=== PATIENT | male | born 1980 | race Caucasian/White ===

== ENCOUNTER 2019-01-14 12:43 | Outpatient (CLI) | payer OTHER ==
[~2019-01-14 12:43] MED LIST: EPINEPHrine 1 MG/ML AMP ONE; Gadobenate Dimeglumine 529 MG/1 ML (20ML VIAL) ONE; Iopamidol 300 61% 50 ML VIAL FS ONE; Lidocaine 1% PF 10 ML AMP ONE
--- NOTE | 2019-01-14 14:55 | RAD ---
EXAM: XR Elbow Lt Arthrogram PROVIDED CLINICAL HISTORY: Left elbow pain. Unknown injury COMPARISON: None Fluoroscopy: Total fluoroscopy time 0.9 minutes with total dose of 25.5 uGy meter squared. TECHNIQUE: The procedure including risks and complications were explained to the patient, and informed consent w as obtained. Patient was placed on the fluoroscopy table in the prone position with left elbow placed in 90 degree position. An area was marked on the posterior aspect of the elbow at the level of the olecranon fossa. The area was meticulously prepped and draped in usual sterile fashion. Skin and subcutaneous tissues were infiltrated with buffered 1% lidocaine for local anesthesia. A 25-gauge needle was advanced into the olecranon fossa. Small amount of contrast was injected with free flow of contrast from the tip of the needle. As result approximately 4 to 5 mL of a mixture originally con taining 2 mL of gadolinium contrast, 8 mL Isovue-300 contrast, sterile saline, lidocaine, and a small amount of epinephrine were instilled into the left elbow joint under fluoroscopic control. The needle was removed, and hemostasis was achieved with direct pressure. Dry sterile dressing was placed. Patient tolerated the procedure well and without immediate complication. The patient was transported to MRI for further imaging. IMPRESSION: Technically successful left elbow arthrogram. Please see MRI left elbow performed after this examinat ion for further details.
--- NOTE | 2019-01-14 16:08 | MRI ---
MR ARTHROGRAM LEFT ELBOW: 01/14/2019 PROVIDED CLINICAL HISTORY: Left elbow pain. FINDINGS: Nonstandard imaging planes limit evaluation. The biceps, triceps, and brachialis insertions appear normal. The medial and lateral elbow ligaments appear intact. The common flexor and common extensor tendon o rigins appear intact. Osteophyte formation is seen about the humeral-ulnar joint. There is no focal articular cartilage de fect apparent. There is no evidence for an intraarticular body. No focal concerning regional marrow or muscular signal abnormality is evident. IMPRESSION: Osteophyte formation about the humeral-ulnar joint, without evidence for internal derangement or defi nite focal articular cartilage loss. POS: C
== END 2019-01-14 12:44 | disposition home or self-care (01) ==
LOC: RAD 12:43
PROVIDERS: ATTEND Family Medicine
DX: M25.522 Pain in left elbow (principal); M25.722 Osteophyte, left elbow
CPT/HCPCS: 24220; A9577; J0171; J3490; J7050; Q9967

== ENCOUNTER 2022-01-12 14:44 | Outpatient (CLI) | payer OTHER | END 2022-01-12 14:45 | disposition home or self-care (01) | LOC: MRI 14:44 | DX: M25.461 Effusion, right knee (principal); M95.8 Other specified acquired deformities of musculoskeletal system; M70.41 Prepatellar bursitis, right knee; M23.91 Unspecified internal derangement of right knee ==